=== PATIENT | female | born 1995 | race Caucasian/White ===

== ENCOUNTER 2017-11-18 08:51 | Outpatient (CLI) | payer OTHER ==
--- NOTE | 2017-11-18 11:33 | ULT ---
THYROID ULTRASOUND: HISTORY: Multinodular goiter. FINDINGS: The right lobe measures 6.5 x 2 x 2.4 cm, and the left lobe measures 6.3 x 1.8 x 2.3 cm. The isthmus measures 7 mm in thickness. The thyroid gland is diffusely heterogeneous. There is a well circumscribed, oval, isoechoic, solid mass in the right mid lobe, measuring 1.4 x 0.7 x 0.9 cm. This is solid, wider than tall, and without echogenic foci, with a smooth margin. IMPRESSION: TI-RADS category 3: Mildly suspicious (total points 3). Recommend followup at 1, 3, and 5 years. POS: [facility]
== END 2017-11-18 08:52 | disposition home or self-care (01) ==
LOC: SCSULT 08:51
PROVIDERS: ATTEND Family Medicine
DX: E04.2 Nontoxic multinodular goiter (principal)
CPT/HCPCS: 76536